=== PATIENT | female | born 1985 | race African-American/Black ===

== ENCOUNTER 2018-11-17 08:51 | Emergency (ER) | payer OTHER ==
[~2018-11-17] VITALS: Ht 160 cm; Wt 68.0 kg
[2018-11-17] MEDS ORDERED: DEPAKOTE125 MG PO (08:58)
[2018-11-17 09:02] VITALS: BP 108/77
--- NOTE | 2018-11-17 09:03 | NUR ---
ED Nurse Note: pt walked in to ED due to constipation for 1 week. pt also c/o intermittent abdominal pain. per pt, normally has BM every 2-3 days. no v/d. AAO x4. respirations even and non-labored noted. skin warm to touch. no open wound noted. will wait for the further order.
[2018-11-17] MEDS ORDERED: COLACE100 MG ORAL (09:07)
--- NOTE | 2018-11-17 09:18 | Emergency Room Report ---
History of Present Illness General Chief Complaint: Constipation Source: Patient Present Illness HPI Patient presents with reports of having difficulty having bowel movements over the past several days patient reports that she was recently discharged from a psychiatric facility on Depakote And Abilify She had some GI intolerance with the Abilify which caused her nausea Patient reports taking [id number] medication however not improving Denies any further vomiting denies any diarrhea Discomfort is also diffuse and cramping in the abdominal region Denies any localizing factor denies any fevers or chills Allergies: Coded Allergies: No Known Allergies (Unverified , 11/17/18) Patient History Past Medical History: see triage record Pertinent Family History: none Reviewed Nursing Documentation: PMH: Agreed; PSxH: Agreed Nursing Documentation-PMH History Of Psychiatric Problem: Yes - DEPRESSION Review of Systems All Other Systems: negative except mentioned in HPI Physical Exam Vital Signs Date Time Temp Pulse Resp B/P (MAP) Pulse Ox O2 Delivery O2 Flow Rate FiO2 11/17/18 08:55 98.1 73 20 108/77 (87) 100 Room Air Sp02 EP Interpretation: reviewed, normal General Appearance: well appearing, no apparent distress Head: normocephalic, atraumatic Eyes: bilateral eye PERRL, bilateral eye EOMI ENT: hearing grossly normal, normal pharynx, TMs + canals normal, uvula midline Neck: full range of motion, supple, no meningismus, no bony tend Respiratory: lungs clear, normal breath sounds, no rhonchi, no respiratory distress, no retraction, no accessory muscle use Cardiovascular #1: normal peripheral pulses, regular rate, rhythm, no edema, no gallop, no JVD, no murmur Gastrointestinal: normal bowel sounds, non tender, soft, no mass, no organomegaly, non-distended, no guarding, no hernia, no pulsatile mass, no rebound Genitourinary: no CVA tenderness Musculoskeletal: normal inspection Neurologic: oriented x3, responsive, automotive accessory installer III-XII nml as tested, motor strength/ tone normal, sensory intact Psychiatric: mood/affect normal Skin: normal color, no rash, warm/dry, palpation normal Lymphatic: normal inspection, no adenopathy Medical Decision Making Diagnostic Impression: Primary Impression: abdominal pain ER Course Multiple differentials and consideration Patient reports mainly mild discomfort and cramping associated with his lack of bowel movements He will be treated conservatively initially Given the soft abdominal exam and the hemodynamic stability I do not feel further imaging or testing was required emergently and patient will return more emergently with any change in symptoms and is stable for close follow-up otherwise Last Vital Signs Date Time Temp Pulse Resp B/P (MAP) Pulse Ox O2 Delivery O2 Flow Rate FiO2 11/17/18 09:02 98.1 73 20 108/77 100 Room Air Status: unchanged Disposition: HOME, SELF-CARE Condition: Stable Scripts Docusate Sodium* (COLACE*) 100 Mg Capsule 100 MG ORAL THREE TIMES A DAY, #12 CAP Prov: Wes Hein DO 11/17/18 Referrals: [facility] Patient Instructions: Abdominal Pain, Adult, [id number] Additional Instructions: Patient is provided with the discharge instructions notified to follow up with primary doctor in the next 2-3 days otherwise return to the er with any worsening symptoms. Please note that this report is being documented using DRAGON technology. This can lead to erroneous entry secondary to incorrect interpretation by the dictating instrument. Wes Hein DO Nov 17, 2018 09:18
[2018-11-17 09:23] VITALS: BP 108/77
--- NOTE | 2018-11-17 09:24 | NUR ---
ER DISCHARGE NOTE: Patient is cleared to be discharged per ERMD, pt is aox4, on room air, with stable vital signs. pt was given dc and prescription instructions, pt was able to verbalize understanding, pt id band removed. pt is able to ambulate with steady gait. pt took all belongings.
== END 2018-11-17 09:24 | disposition home or self-care (01) ==
LOC: EMR 09:15
DX: R10.9 Unspecified abdominal pain (principal); R11.0 Nausea; F32.9 Major depressive disorder, single episode, unspecified
CPT/HCPCS: 99282